=== PATIENT | female | born 1985 | race African-American/Black ===

== ENCOUNTER 2017-07-19 17:52 | Emergency (ER) | payer OTHER ==
[~2017-07-19] VITALS: Ht 175.3 cm; Wt 69.0 kg
[~2017-07-19 17:52] MED LIST: COLACE 100 MG100 MG; DICLOXACILLIN250 M1; IBUPROFEN 800800 M1; IRON325; NOHOMEMEDICATIONS; PRENATAL MULTI1 EAC2
[2017-07-19] MEDS ORDERED: KEFLEX500 M1 PO (18:49)
[2017-07-19 19:30] VITALS: BP 122/85
== END 2017-07-19 19:54 | disposition home or self-care (01) ==
LOC: ER 17:52
DX: L03.114 Cellulitis of left upper limb (principal); Z88.1 Allergy status to other antibiotic agents

== ENCOUNTER 2018-09-06 09:59 | Emergency (ER) | payer OTHER ==
[~2018-09-06] VITALS: Ht 175.3 cm; Wt 73.0 kg
[~2018-09-06 09:59] MED LIST changes: +KEFLEX500 M1 PO
[2018-09-06 10:32] LABS: URINE CLARITY CLEAR; URINE COLOR YELLOW
[2018-09-06 10:33] LABS: URINE BILIRUBIN NEGATIVE (Negative); URINE BLOOD TRACE (Negative); URINE GLUCOSE-RANDOM* NEGATIVE (Negative); URINE KETONES NEGATIVE (Negative); URINE LEUKOCYTES-REFLEX 1+ (Negative); URINE NITRITE-REFLEX NEGATIVE (Negative); URINE PROTEIN (DIPSTICK) NEGATIVE (Negative); URINE UROBILINOGEN 0.2 E.U./dl (0.2-1.0)
[2018-09-06 10:47] LABS: BACTERIA-REFLEX 1-9 Few /HPF (None Seen); CASTS None Seen /LPF (None Seen); CRYSTALS None Seen /LPF (None Seen); SQUAMOUS >10 Many /LPF (0-3); URINE RBC None Seen /HPF (0-2); URINE WBC-REFLEX 0-5 Rare /HPF (0-5)
[2018-09-06 11:20] VITALS: BP 134/76
[2018-09-06] MEDS ORDERED: PHENERGAN 25 MG25 M1 PO (11:26)
== END 2018-09-06 11:30 | disposition home or self-care (01) ==
LOC: ER 09:59
PROVIDERS: Emergency Medicine
DX: J06.9 Acute upper respiratory infection, unspecified (principal); R11.0 Nausea; J32.9 Chronic sinusitis, unspecified; Z88.1 Allergy status to other antibiotic agents; Z88.5 Allergy status to narcotic agent; Z88.6 Allergy status to analgesic agent